=== PATIENT | female | born 1960 | race Caucasian/White ===

== ENCOUNTER → 2017-02-11 | Outpatient (CLI) | payer BC | LOC: MC.RAD 07:17 | DX: Z12.31 Encounter for screening mammogram for malignant neoplasm of breast (principal) ==

== ENCOUNTER → 2018-05-05 | Outpatient (CLI) | payer BC | LOC: MC.RAD 07:30 | DX: Z12.31 Encounter for screening mammogram for malignant neoplasm of breast (principal) ==

== ENCOUNTER → 2018-12-01 | Outpatient (CLI) | payer BC ==
[~2018-12-01] MED LIST: ASPIRIN 30300 MG/SUP RC; DIOVAN320 MG PO; GLUCOPHAGE500 MG/TAB PO; IRON18 MG1 PO; LASIX 20MG TABL20 MG PO; LEXAPRO 5MG5 MG PO; MASON NATURAL2000 IU PO; WELLBUTRIN XL300 M1 PO
== END ==
LOC: LIGHT 10:15
DX: E88.81 Metabolic syndrome and other insulin resistance (principal); E11.9 Type 2 diabetes mellitus without complications; I10 Essential (primary) hypertension; E66.01 Morbid (severe) obesity due to excess calories; Z68.42 Body mass index [BMI] 45.0-49.9, adult; Z71.3 Dietary counseling and surveillance

== ENCOUNTER → 2018-12-15 | Outpatient (CLI) | payer BC | LOC: LIGHT 16:00 | DX: E88.81 Metabolic syndrome and other insulin resistance (principal); E11.9 Type 2 diabetes mellitus without complications; I10 Essential (primary) hypertension; E66.01 Morbid (severe) obesity due to excess calories; Z68.42 Body mass index [BMI] 45.0-49.9, adult; Z71.3 Dietary counseling and surveillance ==

== ENCOUNTER 2019-01-28 15:07 | Emergency (ER) | payer BC ==
[~2019-01-28] VITALS: Ht 172.7 cm; Wt 141.4 kg
[2019-01-28 15:11] VITALS: TEMP 98.3
[2019-01-28] MEDS ORDERED: ASPIRIN 81M81 MG/TA2 PO (15:47)
[2019-01-28] MEDS ORDERED: PREDNISONE20 MG PO (16:47)
[2019-01-28] MEDS ORDERED: LIDODERM 5% PATC1 EA TP (16:47)
[2019-01-28] MEDS ORDERED: NORCO 325 MG-7.1 TAB PO (16:48)
[2019-01-28 17:16] VITALS: BP 145/80; PULSE 83
== END 2019-01-28 17:21 | disposition home or self-care (01) ==
LOC: COL.ER 15:07
DX: R07.89 Other chest pain (principal); R06.2 Wheezing; E11.9 Type 2 diabetes mellitus without complications; Z79.84 Long term (current) use of oral hypoglycemic drugs; Z79.82 Long term (current) use of aspirin
CPT/HCPCS: J7512

== ENCOUNTER → 2019-06-11 | Outpatient (CLI) | payer BC ==
[~2019-06-11] MED LIST changes: +ASPIRIN 81M81 MG/TA2 PO; +LIDODERM 5% PATC1 EA TP; +NORCO 325 MG-7.1 TAB PO; +PREDNISONE20 MG PO
== END ==
LOC: MC.RAD 05-10 07:30
DX: Z01.411 Encounter for gynecological examination (general) (routine) with abnormal findings (principal); Z12.31 Encounter for screening mammogram for malignant neoplasm of breast

== ENCOUNTER → 2020-06-26 | Outpatient (CLI) | payer BC | LOC: MC.RAD 09:15 | DX: Z12.31 Encounter for screening mammogram for malignant neoplasm of breast (principal); Z01.411 Encounter for gynecological examination (general) (routine) with abnormal findings ==

== ENCOUNTER → 2021-06-27 | Outpatient (CLI) | payer BC | LOC: MC.RAD 08:00 | DX: Z12.31 Encounter for screening mammogram for malignant neoplasm of breast (principal) ==

== ENCOUNTER → 2021-06-28 | Outpatient (CLI) | payer BC | LOC: MC.RAD 14:00 | DX: Z12.31 Encounter for screening mammogram for malignant neoplasm of breast (principal); N63.10 Unspecified lump in the right breast, unspecified quadrant ==

== ENCOUNTER → 2021-07-11 | Outpatient (CLI) | payer BC | LOC: MC.RAD 08:04 | DX: N60.01 Solitary cyst of right breast (principal) ==

== ENCOUNTER → 2023-10-09 | Outpatient (CLI) | payer BC | LOC: MC.RAD 09:15 | DX: Z12.31 Encounter for screening mammogram for malignant neoplasm of breast (principal); Z00.00 Encounter for general adult medical examination without abnormal findings ==